=== PATIENT | male | born 1950 | race Caucasian/White ===

== ENCOUNTER → 2017-01-20 | Outpatient (CLI) | payer OTHER, BC ==
[~2017-01-20] VITALS: Ht 175.3 cm; Wt 107.5 kg
[~2017-01-20] MED LIST: ALLOPURINOL300 MG PO; ASPIR 8181 M1 PO; CINNAMON500 MG PO; CO Q10 PO; DAILY VALUE1 EACH PO; GLUCOSAMINE &1 EAC1 PO; GRAPE SEED EXTRACT PO; LEVOXYL137 MCG PO; LIPITOR40 MG PO; LOPRESSOR50 MG PO; NORVASC5 MG PO; ODOR FREE GARL1 EAC1 PO; OMEGA-3 FISH O1 EAC3 PO; VITAMIN B12 PO; VITAMIN D2000 UNI1 PO; ZESTORETIC 20-1 EAC2 PO
== END | disposition home or self-care (01) ==
LOC: AMB 08:06
PROC: 0DBL8ZZ Excision of Transverse Colon, Via Natural or Artificial Opening Endoscopic (ICD-10-PCS; principal; 2017-01-20)
DX: D12.3 Benign neoplasm of transverse colon (principal); K57.30 Diverticulosis of large intestine without perforation or abscess without bleeding; K64.4 Residual hemorrhoidal skin tags; Z86.010 Personal history of colon polyps; Z80.0 Family history of malignant neoplasm of digestive organs
CPT/HCPCS: 88305; J2250